=== PATIENT | male | born 1990 | race Caucasian/White ===

== ENCOUNTER 2019-08-26 10:35 | Inpatient (IN) ==
[2019-08-26] MEDS ORDERED: GLUCAGON 1 MG VIAL IM PRN (13:54)
[2019-08-26] MEDS ORDERED: ACETAMINOPHEN 325 MG TABLET PO PRN (13:54)
[2019-08-26] MEDS ORDERED: DEXTROSE 10% 250 ML BAG IV PRN (13:54)
[2019-08-26] MEDS ORDERED: THIAMINE INJ 100 MG, FOLIC ACID INJ 1 MG, MULTIVITAMIN INJ 10 ML in SODIUM CHLORIDE 0.9... IV ONE (13:54)
[2019-08-26] MEDS ORDERED: ONDANSETRON 4 MG/2 ML VIAL IV PRN (13:54)
[2019-08-26] MEDS ORDERED: PROMETHAZINE 25 MG TABLET PO PRN (13:54)
[2019-08-26] MEDS ORDERED: DICYCLOMINE 10 MG CAPSULE PO PRN (13:54)
[2019-08-26 14:26] LABS: Basophils % 0.5 % (0.0-0.8); Eosinophils # 0.1 10*3/uL (0.0-0.87); Eosinophils % 1.9 % (0.00-10.9); Hematocrit 43.2 VOL% (42.0-52.0); Hemoglobin 13.5 GM/DL (14.0-18.0); Immature Granulocytes % 0.5 %; Immature Granulocytes Absolute 0.04 #; Lymphocytes # 2.7 10*3/uL (1.4-4.0); Lymphocytes % 36.5 % (21.2-54.2); Mean Corpuscular HGB Conc 31.3 GM/DL (32-36); Mean Platelet Volume 8.2 FL (9.6-12.0); Monocytes % 11.7 % (1.7-12.7); Neutrophils % 48.9 % (38.7-73.9); Platelet Count 328 T/CUMM (130-400); White Blood Count 7.4 T/CUMM (4-12)
[2019-08-26 14:44] LABS: Alanine Aminotransferase 26 U/L (16-61); Albumin 3.2 G/DL (3.4-5.0); Alkaline Phosphatase 99 U/L (45-117); Aspartate Amino Transferase 17 U/L (0-37); Bilirubin,Total < 0.39 MG/DL (0.2-1.0); Blood Urea Nitrogen 7 MG/DL (7-18); Calcium 8.5 MG/DL (8.5-10.1); Estimated Glom Filtration Rate 125 ML/MIN; Glucose 79 MG/DL (74-106); Osmolality,Calculated 271.7 MOS/KG (273-304)
[2019-08-26 14:50] LABS: Thyroid Stimulating Hormone 0.584 uIU/ml (0.358-3.74)
[2019-08-26] MEDS: BUPRENORPHINE SL TAB 2 MG TABLET SL SCH ×2 (14:50→21:17)
[2019-08-26] MEDS: ENOXAPARIN 40 MG/0.4 ML SYRINGE SUBCUT SCH (14:52)
[2019-08-26] MEDS: NICOTINE 21 MG/24 HR PATCH TRANSDERM SCH (16:48)
[2019-08-26] MEDS: METHOCARBAMOL 750 MG TABLET PO PRN (21:17)
[2019-08-26] MEDS: HydrOXYzine PAMOATE 25 MG CAPSULE PO PRN (21:18)
[2019-08-26] MEDS: diphenhydrAMINE 50 MG/1 ML VIAL IV PRN (22:09)
[2019-08-27] MEDS: SODIUM CHLORIDE 0.9% 1,000 ML IV SCH ×2 (01:00→15:37)
[2019-08-27] MEDS: METHOCARBAMOL 750 MG TABLET PO PRN ×2 (02:17→08:28)
[2019-08-27] MEDS: HydrOXYzine PAMOATE 25 MG CAPSULE PO PRN ×2 (02:17→08:28)
[2019-08-27 04:54] LABS: Basophils # 0.1 10*3/uL (0.0-0.2); Basophils % 0.8 % (0.0-0.8); Eosinophils # 0.3 10*3/uL (0.0-0.87); Eosinophils % 3.4 % (0.00-10.9); Hematocrit 41.4 VOL% (42.0-52.0); Hemoglobin 13.5 GM/DL (14.0-18.0); Immature Granulocytes % 0.6 %; Immature Granulocytes Absolute 0.04 #; Lymphocytes # 3.5 10*3/uL (1.4-4.0); Lymphocytes % 47.9 % (21.2-54.2); Mean Corpuscular HGB Conc 32.6 GM/DL (32-36); Mean Corpuscular Volume 93.7 FL (87-102); Mean Platelet Volume 8.3 FL (9.6-12.0); Monocytes % 10.3 % (1.7-12.7); Platelet Count 326 T/CUMM (130-400); Red Blood Count 4.42 MC/CUMM (3.8-5.5); Red Cell Distribution Width 12.9 % (9.3-17.3); White Blood Count 7.3 T/CUMM (4-12)
[2019-08-27 05:22] LABS: Alanine Aminotransferase 21 U/L (16-61); Albumin 2.8 G/DL (3.4-5.0); Alkaline Phosphatase 98 U/L (45-117); Aspartate Amino Transferase 17 U/L (0-37); Bilirubin,Total < 0.39 MG/DL (0.2-1.0); Blood Urea Nitrogen 6 MG/DL (7-18); Calcium 8.5 MG/DL (8.5-10.1); Estimated Glom Filtration Rate 142 ML/MIN; Glucose 85 MG/DL (74-106); Osmolality,Calculated 269.8 MOS/KG (273-304); Total Protein 6.6 G/DL (6.4-8.3)
[2019-08-27 05:23] LABS: Eosinophils 2 % (0-10); Lymphocytes 52 % (20-55); Platelet Estimate Adequate; Segmented Neutrophils 37 % (50-85); Total Cells Counted 100
[2019-08-27 05:24] LABS: Atypical Lymphocytes Few; Hypochromasia Slight
[2019-08-27] MEDS: diphenhydrAMINE 50 MG/1 ML VIAL IV PRN ×2 (05:29→13:39)
[2019-08-27] MEDS: BUPRENORPHINE SL TAB 2 MG TABLET SL SCH ×3 (05:32→22:23)
[2019-08-27] MEDS: PANTOPRAZOLE 40 MG TABLET PO SCH (08:28)
[2019-08-27] MEDS: NICOTINE 21 MG/24 HR PATCH TRANSDERM SCH (08:28)
[2019-08-27] MEDS: ENOXAPARIN 40 MG/0.4 ML SYRINGE SUBCUT SCH (13:39)
[2019-08-27] MEDS ORDERED: POTASSIUM CHLORIDE 20 MEQ TABLET PO ONE (17:35)
[2019-08-27] MEDS ORDERED: MAGNESIUM SULF RIDER 2 GM in PREMIX 1 EACH IV ONE (17:35)
[2019-08-27] MEDS: QUEtiapine 100 MG TABLET PO SCH (22:22)
[2019-08-28] MEDS: SODIUM CHLORIDE 0.9% 1,000 ML IV SCH (00:44)
[2019-08-28] MEDS: HydrOXYzine PAMOATE 25 MG CAPSULE PO PRN ×2 (03:57→20:00)
[2019-08-28] MEDS: BUPRENORPHINE SL TAB 2 MG TABLET SL SCH ×2 (05:33→13:35)
[2019-08-28 06:05] LABS: Basophils # 0.1 10*3/uL (0.0-0.2); Basophils % 0.9 % (0.0-0.8); Eosinophils # 0.2 10*3/uL (0.0-0.87); Eosinophils % 2.9 % (0.00-10.9); Hematocrit 41.3 VOL% (42.0-52.0); Hemoglobin 13.8 GM/DL (14.0-18.0); Immature Granulocytes % 0.8 %; Immature Granulocytes Absolute 0.05 #; Lymphocytes % 46.4 % (21.2-54.2); Mean Corpuscular HGB Conc 33.4 GM/DL (32-36); Mean Corpuscular Volume 92.4 FL (87-102); Mean Platelet Volume 8.5 FL (9.6-12.0); Monocytes % 9.7 % (1.7-12.7); Neutrophils % 39.3 % (38.7-73.9); Platelet Count 311 T/CUMM (130-400); Red Blood Count 4.47 MC/CUMM (3.8-5.5); Red Cell Distribution Width 13.1 % (9.3-17.3); White Blood Count 6.5 T/CUMM (4-12)
[2019-08-28 06:39] LABS: Alanine Aminotransferase 24 U/L (16-61); Albumin 2.7 G/DL (3.4-5.0); Alkaline Phosphatase 95 U/L (45-117); Aspartate Amino Transferase 17 U/L (0-37); Bilirubin,Total < 0.39 MG/DL (0.2-1.0); Blood Urea Nitrogen 6 MG/DL (7-18); Calcium 8.1 MG/DL (8.5-10.1); Estimated Glom Filtration Rate 142 ML/MIN; Glucose 90 MG/DL (74-106); Osmolality,Calculated 274.5 MOS/KG (273-304); Total Protein 6.6 G/DL (6.4-8.3)
[2019-08-28] MEDS: PANTOPRAZOLE 40 MG TABLET PO SCH (08:44)
[2019-08-28] MEDS: NICOTINE 21 MG/24 HR PATCH TRANSDERM SCH (08:44)
[2019-08-28] MEDS: diphenhydrAMINE 50 MG/1 ML VIAL IV PRN ×2 (08:46→20:14)
[2019-08-28] MEDS: ENOXAPARIN 40 MG/0.4 ML SYRINGE SUBCUT SCH (13:36)
[2019-08-28] MEDS: QUEtiapine 100 MG TABLET PO SCH (20:13)
[2019-08-29] MEDS: HydrOXYzine PAMOATE 25 MG CAPSULE PO PRN (03:14)
[2019-08-29] MEDS: BUPRENORPHINE SL TAB 2 MG TABLET SL SCH (03:15)
[2019-08-29] MEDS: NICOTINE 21 MG/24 HR PATCH TRANSDERM SCH (08:40)
[2019-08-29] MEDS: PANTOPRAZOLE 40 MG TABLET PO SCH (08:40)
[2019-08-29 08:53] VITALS: BP 126/95
== END 2019-08-29 09:45 | disposition home or self-care (01) | DRG 897 ==
LOC: N.4E 11:43 → SUATTDRO 11:43
PROVIDERS: ADMIT Family Medicine; ATTEND Internal Medicine